=== PATIENT | female | born 1945 | race Caucasian/White ===

== ENCOUNTER 2017-03-20 21:45 | Observation (INO) ==
--- NOTE | 2017-03-20 22:31 | Emergency Department Note ---
Disposition Clinical Impression: Warfarin-induced coagulopathy, Elevated INR, Visual loss, Weakness, Elevated erythrocyte sedimentation rate Vitreous hemorrhage Qualifiers: Laterality: right Qualified Code(s): H43.11 - Vitreous hemorrhage, right eye Chest pain Qualifiers: Chest pain type: unspecified Qualified Code(s): R07.9 - Chest pain, unspecified Disposition: Admitted As Inpatient Condition: Fair Referrals: Ravin Mei MD [Primary Care Provider] - Forms: ED Satisfaction Letter Time of Disposition: 00:36 General Adult HPI - General Chief complaint: ED Recheck/Abnormal Lab/Rx Stated complaint: abnormal labs, sent by dr mei Time Seen by Provider: 03/20/17 21:49 Source: patient Mode of arrival: ambulatory Limitations: no limitations Nursing Notes Reviewed: Yes Vital Signs Reviewed: Yes - History of Present Illness HPI Narrative: Patient presents to the ED with the original complaint of abnormal labs. Patient reportedly was sent here due to an elevated INR. She is on Coumadin for lupus anticoagulant. Her INR was 6.6 today and so she was told to come in. Incidentally, the patient complains of generalized weakness over the last few days, increasing weakness in her bilateral upper extremities. She does have known cervical disc disease and has had previous decompressions and fusions. She is unable have an MRI because of this. She reports a 24-hour history of right vision loss. Pain Scale: 6 - Related Data Allergies Allergy/AdvReac Type Severity Reaction Status Date / Time Iodinated Contrast- Oral and Allergy Anaphylaxis Verified 03/20/17 21:56 IV Dye Penicillins Allergy Rash Verified 03/20/17 21:56 Sulfa (Sulfonamide Allergy Swelling Verified 03/20/17 21:56 Antibiotics) of Lip/Tongue/Throat All systems ED: reviewed and negative except as stated. Constitutional: Reports: weakness. Denies: fever Eyes: Reports: vision change Cardiovascular: Reports: chest pain Respiratory: Denies: dyspnea Gastrointestinal: Denies: abdominal pain Musculoskeletal: Reports: as per HPI Neurological: Reports: weakness. Denies: headache Past Medical History - Past Medical History Attestation: Yes The following information was validated with the patient. Source: patient Medical history: Reports: COPD, CVA, DVT, diabetes, myocardial infarction, pulmonary embolus, thyroid disease Psychiatric history: Reports: no psych history - Social History Smoking Status: Current every day smoker Smokeless Tobacco Status: No Alcohol use: Reports: none Drug use: Reports: none Physical Exam - General Limitations: no limitations General appearance: alert, in no apparent distress - Head Head exam: atraumatic, normocephalic, normal inspection - Eye Eye exam: Present: other (Red reflex is absent in the right eye, pupils are reactive but sluggish, no apparent pupillary defect. At this point) - ENT ENT exam: normal exam, normal oropharynx, mucous membranes moist - Neck Neck exam: Absent: full ROM (decreased), tenderness - Chest Chest inspection: Present: normal inspection, symmetric chest wall rise - Respiratory Respiratory exam: Present: normal lung sounds bilaterally - Cardiovascular Cardiovascular exam: Present: regular rate, normal rhythm, normal heart sounds - Abdominal Exam Abdominal exam: Present: soft, Non-Tender. Absent: tenderness, distention, guarding, rebound, rigidity - Expanded Upper Extremity Exam Shoulder exam: Present: normal inspection, full ROM Arm exam: Present: normal inspection, full ROM Elbow exam: Present: normal inspection, full ROM Forearm/Wrist exam: Present: other (muscle wasting of LUE, chronic extending to hand, no acute weakness ) Vascular exam: Normal: capillary refill - Expanded Lower Extremity Exam Hip/Pelvis exam: Present: normal inspection, full ROM - Neurological Exam Neurological exam: Present: alert, oriented X3, CN II-XII intact - Expanded Neurological Exam Patient oriented to: Present: person, place, time Speech: Present: fluid speech Cranial nerves: EOM function (II, III, IV, ): Normal, facial sensation (V): Normal, facial palsy (VII): Normal, spinal accessory function (XI): Normal, tongue deviation (XII): Normal Motor strength - LUE: 4/5 Motor strength - RUE: 4/5 Motor strength - LLE: 4/5 Motor strength - RLE: 4/5 Upper motor neuron exam: collin neglect: Absent bilaterally Sensory exam upper extremity: light touch: Normal Sensory exam lower extremity: light touch: Normal Coma Scale Eye Opening: Spontaneous Coma Scale Motor Response: Obeys Commands Coma Scale Verbal Response: Oriented Coma Scale Total: 15 - Psychiatric Psychiatric exam: Present: normal affect, normal mood - Skin Skin exam: Present: warm, dry, intact, normal color Course Course Narrative: Patient presenting with generalized weakness, intermittent chest pain, increasing upper extremity weakness and 24 hour history of right-sided visual loss. We will check labs, repeat INR. CT head, chest x-ray and admitted. - Reevaluation(s) Reevaluation #1: attempted to admit patient to hospitalist service. Dr. Ro would like us to speak with Dr. Garcia from [facility] prior to accepting admission. Will page him now. Time: 00:12 Reevaluation #2: Bedside US showed suspected vitreous hemorrhage. unable to see retina due to haziness and debris We spoke with Dr. Garcia. He will see her tomorrow. No acute changes to management, hold anticoagulation, avoid high stress activities such as blowing nose or vomiting. No reversal at this time. Time: 00:29 Vital Signs Temperature 97.5 F L 03/20/17 21:56 Pulse Rate 60 03/20/17 21:56 Respiratory Rate 20 03/20/17 21:56 Blood Pressure 168/73 03/20/17 21:56 O2 Sat by Pulse Oximetry 97 03/20/17 21:56 Temperature 97.5 F L 03/20/17 21:56 Pulse Rate 60 03/20/17 21:56 Respiratory Rate 20 03/20/17 21:56 Blood Pressure 168/73 03/20/17 21:56 O2 Sat by Pulse Oximetry 97 03/20/17 21:56 Oxygen Delivery Oxygen Delivery Room Air Medical Decision Making - MDM Narrative Medical decision making narrative: Vitreous hemorrhage, chest discomfort, generalized weakness - Medical Records Medical records reviewed: Yes I reviewed the patient's medical records. - Lab Data Lab results reviewed: Yes I reviewed the patient's lab results. Result diagrams: 03/20/17 23:16 03/20/17 23:16 Lab Results 03/20/17 03/20/17 03/20/17 Range/Units 23:00 23:16 23:16 WBC 11.0 (4.3-11.1) K/mcL RBC 4.91 (3.82-4.97) M/mcL Hgb 15.0 (11.5-15.4) g/dL Hct 45.8 H (35.3-44.9) % MCV 93.3 (83.0-100.0) fL MCH 30.5 (28.0-33.3) pg MCHC 32.8 (31.6-35.5) g/dL RDW 13.9 (11.5-14.5) % Plt Count 250 (140-400) K/mcL MPV 10.1 (9.4-12.4) fL Immature Gran % 0.4 (0-4) % Seg Neutrophils % 70.4 % Lymphocytes % 17.6 % Monocytes % 8.1 % Eosinophils % 3.0 % Basophils % 0.5 % Neutrophils # 7.8 (1.6-8.9) K/mcL Lymphocytes # 1.9 (0.6-4.6) K/mcL Monocytes # 0.9 (0.0-1.3) K/mcL Eosinophils # 0.3 (0.0-0.6) K/mcL Basophils # 0.1 (0.0-0.2) K/mcL ESR (0-15) mm/hr PT 77.9 H* (9.4-12.1) Seconds INR 6.9 H* Sodium (136-145) mEq/L Potassium (3.5-5.1) mEq/L Chloride (98-107) mEq/L Carbon Dioxide (23-29) mEq/L BUN (8-23) mg/dL Creatinine (0.60-1.20) mg/dL Est GFR ( Amer) (> 60) Est GFR (Non-Af Amer) (> 60) BUN/Creatinine Ratio (6-26) Glucose (70-105) mg/dL Calculated Osmolality (280-300) Calcium (8.6-10.3) mg/dL Troponin I (< 0.04) ng/mL TSH (0.340-5.600) mcIU/mL Urine Color Yellow (Yellow) Urine Clarity Clear (Clear) Urine pH 7.0 (5.0-8.0) pH Units Ur Specific [place] 1.007 L (1.010-1.025) Urine Protein Trace (Neg-Trace) mg/dL Urine Glucose (UA) Normal (Normal) mg/dL Urine Ketones Negative (Negative) mg/dL Urine Blood Small H (Negative) Urine Nitrite Negative (Negative) Urine Bilirubin Negative (Negative) Urine Urobilinogen Normal (Normal) mg/dL Ur Leukocyte Esterase Negative (Negative) Urine Microscopic RBC 5-15 H (0-3) per hpf Urine Microscopic WBC 0-3 (0-3) per hpf Ur Squamous Epith Cells Many H (None-Few) per lpf Urine Bacteria None Seen (None-Few) per hpf Hyaline Casts None Seen (None-Few) per lpf Ur Culture Indicated? NO (NO) 03/20/17 03/20/17 03/20/17 Range/Units 23:16 23:16 23:16 WBC (4.3-11.1) K/mcL RBC (3.82-4.97) M/mcL Hgb (11.5-15.4) g/dL Hct (35.3-44.9) % MCV (83.0-100.0) fL MCH (28.0-33.3) pg MCHC (31.6-35.5) g/dL RDW (11.5-14.5) % Plt Count (140-400) K/mcL MPV (9.4-12.4) fL Immature Gran % (0-4) % Seg Neutrophils % % Lymphocytes % % Monocytes % % Eosinophils % % Basophils % % Neutrophils # (1.6-8.9) K/mcL Lymphocytes # (0.6-4.6) K/mcL Monocytes # (0.0-1.3) K/mcL Eosinophils # (0.0-0.6) K/mcL Basophils # (0.0-0.2) K/mcL ESR >= 130 H (0-15) mm/hr PT (9.4-12.1) Seconds INR Sodium 136 (136-145) mEq/L Potassium 3.8 (3.5-5.1) mEq/L Chloride 103 (98-107) mEq/L Carbon Dioxide 26 (23-29) mEq/L BUN 11 (8-23) mg/dL Creatinine 0.85 (0.60-1.20) mg/dL Est GFR ( Amer) > 60 (> 60) Est GFR (Non-Af Amer) > 60 (> 60) BUN/Creatinine Ratio 13 (6-26) Glucose 171 H (70-105) mg/dL Calculated Osmolality 285 (280-300) Calcium 9.8 (8.6-10.3) mg/dL Troponin I < 0.03 (< 0.04) ng/mL TSH 2.148 (0.340-5.600) mcIU/mL Urine Color (Yellow) Urine Clarity (Clear) Urine pH (5.0-8.0) pH Units Ur Specific [place] (1.010-1.025) Urine Protein (Neg-Trace) mg/dL Urine Glucose (UA) (Normal) mg/dL Urine Ketones (Negative) mg/dL Urine Blood (Negative) Urine Nitrite (Negative) Urine Bilirubin (Negative) Urine Urobilinogen (Normal) mg/dL Ur Leukocyte Esterase (Negative) Urine Microscopic RBC (0-3) per hpf Urine Microscopic WBC (0-3) per hpf Ur Squamous Epith Cells (None-Few) per lpf Urine Bacteria (None-Few) per hpf Hyaline Casts (None-Few) per lpf Ur Culture Indicated? (NO) - Radiology Data Radiology results reviewed: Yes I reviewed the patient's radiology results. CT and chest x-ray reviewed and otherwise unremarkable - EKG Data EKG #1 EKG attestation: Yes I reviewed and interpreted this EKG. EKG results narrative: EKG shows what appears to be an atrially paced rhythm. Patient has no acute signs of EKG abnormality at this time. Intervals appear to be normal after the paced presentation. No acute signs of ST segment elevation. Ventricular rate of 60. ME interval 182. QRS duration of 83. QTC of 445. No other acute pathology noted S.B.A.R. - S.B.A.R. Situation: Demographics, MOA Background: Presenting Complaint, Relevant PMH, Meds, & Allergies Assessment: Vital Signs, Course and respsone to treatment, Exam Concerns, Patient/Family Expectation, Pertinant Lab Results, Outstanding Labs Recommendation: Recommendation based on pending studies, treatments, or consults S.B.A.R. Report Given to: Dr. Ro SKyaraB.A.Mali Repor Time: 00:36 Attestation Statement - Attestation Attestation: I, Omar Leonard DO, examined this patient [id number] and my medical decision-making was reviewed with Dr. Robby Burr, Resident Physician. I agree with the documented findings, disposition and treatment plan as described except to the extent set forth below. Please see my progress notes for details. 71-year-old female presents to emergency room for abnormal lab. Her INR was 6.3 yesterday. Patient also had what she described as vision loss in the right eye. She has had this happened twice in the past secondary to a intraocular hemorrhage. Patient denies any other trauma this time. She has been falling more often but that secondary to stumbling over her feet. Patient presents here today secondary to abnormal lab and vision loss in the right eye. Physical exam is otherwise unremarkable. Vital signs reviewed and are stable except for hypertension. Patient has no acute neurologic symptoms. Her pupils are equal round reactive extraocular muscles are intact. Her oral mucosa is patent her trachea is midline of the lungs are clear she has no carotid bruits noted on exam. She has no stridor no trismus. Recent evaluation including CT imaging labs and carotid Dopplers are reviewed on the chart medical record system. She has no acute critical stenotic areas in the carotids and has a stable CT scan from us in 24 hours ago. Labs are otherwise unremarkable except for the INR that she disclosed to us. 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 Lungs are otherwise clear heart is regular abdomen is soft nontender nondistended with no guarding or rigidity. Left upper extremity has muscle wasting from the mid humerus down to the hand that is chronic. She does tingling in the right upper extremity but no acute neurologic deficits noted at this time. Symptoms could be secondary to nerve entrapment and chronic issue. Patient on presentation is concerning for neurologic issues secondary to history of stroke. She is also concerning for acute hemorrhage in the eyes secondary to the elevated INR. Patient will repeat laboratory workup completed including a CT of the head. Aside from his presenting issues at this point patient will be treated and evaluated for chest discomfort and pain as well as the eye related issues. Will most likely require admission for further evaluation of possible MRI and cardiac evaluation. Patient understands this and is comfortable with the projected plan. Her INR is 6.9 here today but does not require reversal at this point. We will continue to monitor here in the emergency room. She has no pain with palpation the eye movement of the eye and low clinical concern for increased intraocular pressure at this point. No other acute physical exam findings noted at this point. Patient did not have any critical care applied to her treatment course at this time. See detailed documentation of the physical exam , medical intervention, medical decision-making and disposition and the resident physician's note [phone] Hospitalist paged. Patient reviewed in detail. Consultation requested ophthalmology. Computer Processing Scheduler reviewed and presented these symptoms as well as ultrasound findings. No other concern from nursing at this time for what appears to be spontaneous vitreous hemorrhage. CT imaging of the head is otherwise unremarkable for intracranial bleed or obstructive pathology. There is what appears to be possible acute bleed inside the right eye at this time. No other acute findings noted. Patient has not had any acute change in symptoms or pain with movement or palpation of the eye at this time. Patient is otherwise stable with multiple medical complaints on presentation including chest pain and generalized weakness elevated INR and vision loss in the right eye. Will be admitted for definitive evaluation and management. Otherwise patient shown no acute signs of neurologic change or progression of her symptoms at this point. Admission process completed.
[2017-03-20 23:11] LABS: Bilirubin,Urine Negative (Negative); Blood,Urine Small (Negative); Clarity,Urine Clear (Clear); Color,Urine Yellow (Yellow); Glucose,Urine (UA) Normal (Normal); Ketones,Urine Negative (Negative); Leukocyte Esterase,Urine Negative (Negative); Nitrite,Urine Negative (Negative); Protein,Urine Trace mg/dL (Neg-Trace); Specific Gravity,Urine 1.007 (1.010-1.025); Urobilinogen,Urine Normal (Normal)
[2017-03-20 23:13] LABS: Bacteria,Urine None Seen per hpf (None-Few); Hyaline Casts,Urine None Seen per lpf (None-Few); Squamous Epithelial Cell,Urine Many per lpf (None-Few); WBC,Urine 0-3 per hpf (0-3)
[2017-03-20 23:27] LABS: Basophils # 0.1 K/mcL (0.0-0.2); Basophils % 0.5 %; Eosinophils # 0.3 K/mcL (0.0-0.6); Hematocrit 45.8 % (35.3-44.9); Immature Granulocytes % 0.4 % (0-4); Lymphocytes # 1.9 K/mcL (0.6-4.6); Lymphocytes % 17.6 %; Mean Corpuscular HGB Conc 32.8 g/dL (31.6-35.5); Mean Corpuscular Hemoglobin 30.5 pg (28.0-33.3); Mean Corpuscular Volume 93.3 fL (83.0-100.0); Mean Platelet Volume 10.1 fL (9.4-12.4); Monocytes # 0.9 K/mcL (0.0-1.3); Monocytes % 8.1 %; Neutrophils # 7.8 K/mcL (1.6-8.9); Platelet Count 250 K/mcL (140-400); Red Blood Count 4.91 M/mcL (3.82-4.97); Red Cell Distribution Width 13.9 % (11.5-14.5); Segmented Neutrophils % 70.4 %
[2017-03-20 23:43] LABS: INR 6.9; Prothrombin Time 77.9 Seconds (9.4-12.1)
[2017-03-20 23:46] LABS: BUN/Creatinine Ratio 13 (6-26); Blood Urea Nitrogen 11 mg/dL (8-23); Calcium 9.8 mg/dL (8.6-10.3); Carbon Dioxide 26 mEq/L (23-29); Chloride 103 mEq/L (98-107); Glucose 171 mg/dL (70-105); Osmolality,Calculated 285 (280-300); Potassium 3.8 mEq/L (3.5-5.1); Sodium 136 mEq/L (136-145); eGFR For African Americans > 60 (> 60); eGFR For Non-African Americans > 60 (> 60)
[2017-03-21 00:06] LABS: Thyroid Stimulating Hormone 2.148 mcIU/mL (0.340-5.600)
[2017-03-21] MEDS ORDERED: Albuterol 2.5 MG/3 ML NEBULIZER IH PRN (02:15)
[2017-03-21] MEDS ORDERED: *HR* Dextrose 50 % in Water (Syg) 50 ML SYRINGE IVP PRN (02:17)
[2017-03-21] MEDS ORDERED: Dextrose Gel 15 GM/37.5 ML TUBE PO PRN ×2 (02:17)
[2017-03-21] MEDS ORDERED: D5% in Water 1,000 ML IVC PRN (02:17)
--- NOTE | 2017-03-21 02:26 | Internal Med History&Physical ---
Date of Encounter: 03/21/17 Time of Encounter: 01:00 Assessment and Plan (1) Carotid stenosis Current visit: Yes Status: Acute Duplex carotid report reviewed, left side 40-59% stenosis. Pt has hx of CVA and she was sent to hospital by PCP to see vascular surgeon. - Will consult vascular surgery, non urgent, day shift to call. Qualifiers: Laterality: left Qualified Code(s): I65.22 - Occlusion and stenosis of left carotid artery (2) DVT prophylaxis Current visit: Yes Status: Acute Pt is on coumadin, INR supratherapeutic. (3) Vitreous hemorrhage Current visit: Yes Status: Acute Material Analyst was consult by ER, recommend hold coumadin, no reversal (see ER note). Qualifiers: Laterality: right Qualified Code(s): H43.11 - Vitreous hemorrhage, right eye (4) Elevated INR Current visit: Yes Status: Acute Hold coumadin, no active bleeding except vitreous now. Will closely f/u INR level. (5) Visual loss Current visit: Yes Status: Acute Due to Vitreous hemorrhage, crossing guard will see pt. (6) Weakness Current visit: Yes Status: Acute Most likely due to C-spine disease. Head CT done, negative. Cannot do MRI b/o metal pod and PPM (7) HTN (hypertension) Current visit: Yes Status: Acute Will cont home med and give hydralazine 10mg iv PRN Qualifiers: Hypertension type: essential hypertension Qualified Code(s): I10 - Essential (primary) hypertension (8) Diabetes Current visit: Yes Status: Acute Place pt on basal and sliding scale insulin. Qualifiers: Diabetes mellitus type: type 2 Diabetes mellitus complication status: without complication Diabetes mellitus group home insulin use: with group home use Qualified Code(s): E11.9 - Type 2 diabetes mellitus without complications ; Z79.4 - exterminator helper termite (current) use of insulin; Z79.4 - exterminator helper termite (current) use of insulin; Z79.4 - exterminator helper termite (current) use of insulin; Z79.4 - retirement ( current) use of insulin (9) COPD (chronic obstructive pulmonary disease) Current visit: Yes Status: Acute Stable, no signs of exacerbation, cont home med. Qualifiers: COPD type: emphysema Emphysema type: unspecified Qualified Code(s): J43.9 - Emphysema, unspecified (10) TK (obstructive sleep apnea) Current visit: Yes Status: Acute Cont CPAP during night. (11) Antiphospholipid syndrome Current visit: Yes Status: Acute Cont coumadin (hold now b/o supratherapeutic INR). Pt was on prednisone but was discontinued since about 3 months ago. Internal Medicine - H&P: HPI Chief complaint: Abnormal test results Admitted From: Home Plans for Post Hospital Care: Home History of present illness: Ms. Dalton is a 71 year old female with Hx of COPD, DM, HTN, TK on CPAP, Lupus , Antiphospholipid syndrome, Hx of DVT on coumadin, Hx of CVA, send to ER by PCP for high INR and carotid US shows stenosis. Pt also reported right eye vision change which she had before and was diagnosed as vitreous bleed. Pt has no other acute complaints. She has chronic headache, pt has weakness due to C- spine disease and s/p surgery. Past Med Surg Social Fam HX - Past Medical History Medical history: COPD, CVA, DVT, diabetes, myocardial infarction, pulmonary embolus, thyroid disease Psychiatric history: no psych history - Social History Smoking Status: Current every day smoker Packs per day: 1 Smokeless Tobacco Status: No Alcohol use: none Drug use: none - Family History Mother History Unknown: Yes Internal Medicine - H&P: Meds Albuterol Sulfate 2.5 mg IH TID PRN 03/21/17 [History] Carvedilol [Coreg] 25 mg PO DAILY 03/21/17 [History] Levocetirizine Dihydrochloride 5 mg PO DAILY 03/21/17 [History] Warfarin [Coumadin] 5 mg PO 1800 03/21/17 [History] 3 Allergy/AdvReac Type Severity Reaction Status Date / Time Iodinated Contrast- Oral and Allergy Anaphylaxis Verified 03/20/17 21:56 IV Dye Penicillins Allergy Rash Verified 03/20/17 21:56 Sulfa (Sulfonamide Allergy Swelling Verified 03/20/17 21:56 Antibiotics) of Lip/Tongue/Throat All Systems PM: A 10-system review of systems was performed and is negative for pertinent findings except as documented above in the HPI. - Constitutional Vitals: Temp Pulse Resp BP Pulse Ox 98.8 F 64 16 181/86 98 03/21/17 01:20 03/21/17 01:20 03/21/17 01:20 03/21/17 01:20 03/21/17 01:20 General appearance: Present: A&O X 3, no acute distress, answers questions appropriately - Head Head exam: Present: atraumatic, normocephalic - Eye Eye exam: Present: PERRL, conjuntiva pink, sclera anicteric Pupils: Present: PERRL Additional comments: Right eye vision change - Neck Neck exam general surgery: Present: supple, trachea midline. Absent: lymphadenopathy - Respiratory Respiratory exam: Present: CTAB. Absent: accessory muscle use, rales, rhonchi, wheezes - Cardiovascular Cardiovascular exam: Present: RRR, +S1, +S2. Absent: diastolic murmur, gallop, rubs, systolic murmur - GI/Abdominal GI/Abdominal exam: Present: normal bowel sounds, soft, no peritoneal signs. Absent: distended, tenderness - Extremities Exam Extremities exam: Present: warm, radial pulses palpable and symmetrical. Absent : calf tenderness, cyanotic, pedal edema - Neurological Exam Neurological exam: Present: CN II-XII intact, motor sensory deficit (Motor 4/5 Rt UE/LE, 4-/5 Lt UE/LE), oriented X3, no focal deficits. Absent: pronater drift, facial droop, speech deficit - Skin Skin exam: Present: dry, intact Internal Med - H&P Results - Labs CBC & Chem 7: 03/20/17 23:16 03/20/17 23:16
[2017-03-21] MEDS: Insulin DETEMIR 100 UNIT/ML X5UNITS SQ SCH ×2 (03:45→20:57)
[2017-03-21 04:11] LABS: Basophils # 0.1 K/mcL (0.0-0.2); Basophils % 0.6 %; Eosinophils # 0.3 K/mcL (0.0-0.6); Eosinophils % 2.9 %; Hematocrit 43.1 % (35.3-44.9); Hemoglobin 14.1 g/dL (11.5-15.4); Immature Granulocytes % 0.6 % (0-4); Lymphocytes # 2.6 K/mcL (0.6-4.6); Lymphocytes % 29.1 %; Mean Corpuscular HGB Conc 32.7 g/dL (31.6-35.5); Mean Corpuscular Hemoglobin 30.1 pg (28.0-33.3); Mean Corpuscular Volume 92.1 fL (83.0-100.0); Mean Platelet Volume 10.7 fL (9.4-12.4); Monocytes # 0.8 K/mcL (0.0-1.3); Monocytes % 8.8 %; Neutrophils # 5.1 K/mcL (1.6-8.9); Platelet Count 228 K/mcL (140-400); Red Blood Count 4.68 M/mcL (3.82-4.97); Red Cell Distribution Width 14.1 % (11.5-14.5)
[2017-03-21 04:22] LABS: INR 6.7
[2017-03-21 04:23] LABS: Prothrombin Time 74.6 Seconds (9.4-12.1)
[2017-03-21 05:03] LABS: BUN/Creatinine Ratio 14 (6-26); Blood Urea Nitrogen 12 mg/dL (8-23); Calcium 9.3 mg/dL (8.6-10.3); Carbon Dioxide 24 mEq/L (23-29); Chloride 104 mEq/L (98-107); Glucose 291 mg/dL (70-105); Osmolality,Calculated 292 (280-300); Potassium 3.9 mEq/L (3.5-5.1); Sodium 136 mEq/L (136-145); eGFR For African Americans > 60 (> 60); eGFR For Non-African Americans > 60 (> 60)
[2017-03-21] MEDS ORDERED: Nitroglycerin 1 INCH/GM PACKET TP ONE (05:43)
[2017-03-21] MEDS: Acetaminophen 325 MG TABLET PO PRN ×3 (05:59→21:19)
[2017-03-21] MEDS ORDERED: tiZANidine 4 MG TABLET PO PRN (07:00)
[2017-03-21] MEDS ORDERED: *HR* Phytonadione 5 MG TABLET PO ONE (08:06)
[2017-03-21] MEDS: Ranolazine 500 MG TAB.ER.12H PO SCH ×2 (08:57→20:57)
[2017-03-21] MEDS: Aspirin Enteric Coated 81 MG Tablet PO SCH (08:57)
[2017-03-21] MEDS: Furosemide 40 MG TABLET PO SCH (08:57)
[2017-03-21] MEDS: Isosorbide MONOnitrate (24 HR) 30 MG TAB.ER.24H PO SCH (08:58)
[2017-03-21] MEDS: Gabapentin 400 MG CAPSULE PO SCH ×3 (08:58→20:57)
[2017-03-21] MEDS: Losartan/HCTZ 50-12.5 TABLET PO SCH (08:58)
[2017-03-21] MEDS: Nicotine 21 MG PATCH.TD24 TD SCH (08:59)
[2017-03-21] MEDS: LEVOCETIRIZINE DIHYDROCHLORIDE 5 MG PO SCH (09:00)
[2017-03-21] MEDS: Insulin LISPRO 300 UNITS/3 ML VIAL SQ SCH ×3 (09:00→18:06)
[2017-03-21] MEDS: Budesonide/Formoterol 80/4.5 MDI IH SCH ×2 (11:36→20:07)
--- NOTE | 2017-03-21 12:10 | Internal Medicine Consult Note ---
Date of Encounter: 03/21/17 Time of Encounter: 12:08 Internal Medicine - CN: HPI - Data of Consult Requesting Physician: Roseline Sam MD - Consult Narrative History of present illness: Patient reports decreased vision in the right eye since 2 days ago. The visual loss is severe and patient reports that she sees only shades of light and shadows in her right eye. She states that her vision may have improved slightly since the initial loss of vision 2 days ago. She reports that she had a bleed in her right eye on 02/20/2017. She reports that she had some pain like pressure behind the eye before the loss of vision 2 days ago. Patient reports that she has had headaches on the top of her head near the back side in the past and she has a headache there at this time. She reports that she has blockage in her carotid arteries and she has lupus with extra clotting factors and she is on Coumadin for this. She reports that she iis a type II insulin dependent diabetic. She reports that she has coronary artery disease and she has a pacemaker. She reports that she has COPD and sleep apnea. Examination reveals detection of hand movement only at about 1 foot in the right eye and 20/25-2 with correction at near in the left eye. Intraocular pressures are 23 mm Hg OD and 10 mm Hg OS via applanation without the use of fluorescein dye (patient reports that she is allergic to this dye). Extraocular motility was normal. Confrontation visual layne: unable to perform in the right eye due to the profound visual loss. confrontation visual layne were normal in the left eye. Pupils - round, sluggish to light OD & OS. No relative afferent pupillary defects noted. Slit lamp examination: Eyelids normal OD & OS, conjunctiva normal OD & OS, cornea clear OD & OS, anterior chamber depth 2/ clear OD & OS, iris- slightly serrated pupillary margin OD, mild iris transillumination OD & OS, otherwise normal OD & OS. Lens: Posterior chamber IOL in good position OD & OS; open posterior capsule OD , trace posterior capsular opacification OS. Posterior segment: OD diffuse vitreous hemorrhage precludes view of the ocular fundus. OS: optic disc has moderate cupping with a cup to disc ratio of 0.6; macula - presumed argon laser photocoagulation scars, otherwise normal; vessels unremarkable; panretinal photocoagulation scars noted in the retinal periphery in all quadrants; vitreous is clear. Impression: 1. Vitreous hemorrhage right eye 2. Pseudophakia both eyes. 3. 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 Recommendation: Patient should avoid all unnecessary activities and rest with her head elevated using an extra pillow if necessary. She should follow up with her plastic outfitter, Dr. Baldwin after discharge. Please send a copy of this report to his office or give patient a copy of the report to give to him. Thank you. Hussein Garcia D.O. Past Med Surg Social Fam HX - Past Medical History Medical history: COPD, CVA, DVT, diabetes, myocardial infarction, pulmonary embolus, thyroid disease Psychiatric history: no psych history - Social History Smoking Status: Current every day smoker Packs per day: 1 Smokeless Tobacco Status: No Alcohol use: none Drug use: none - Family History Mother History Unknown: Yes Internal Medicine - CN: Meds Albuterol Sulfate 2.5 mg IH TID PRN 03/21/17 [History] Albuterol Sulfate [Proair Hfa] 90 mcg IH Q4H PRN 03/21/17 [History] Albuterol Sulfate [Proair Respiclick] 90 mcg IH 03/21/17 [History] Albuterol Sulfate [Proair Respiclick] 90 mcg IH Q4H PRN 03/21/17 [History] Aspirin [Lo-Dose Aspirin EC] 81 mg PO DAILY 03/21/17 [History] Atorvastatin Calcium [Lipitor] 20 mg PO DAILY 03/21/17 [History] Carvedilol [Coreg] 25 mg PO DAILY 03/21/17 [History] Furosemide [Lasix] 40 mg PO DAILY 03/21/17 [History] Gabapentin [Neurontin] 800 mg PO QID 03/21/17 [History] Insulin ASPART [NovoLOG] 18 unit SQ TIDWM 03/21/17 [History] Insulin Glargine,Hum.rec.anlog [Lantus Solostar] 23 units SQ HS 03/21/17 [ History] Isosorbide MONOnitrate [Isosorbide Mononitrate ER] 30 mg PO DAILY 03/21/17 [ History] Levocetirizine Dihydrochloride 5 mg PO DAILY 03/21/17 [History] Levothyroxine [Synthroid] 175 mcg PO 0630 03/21/17 [History] Losartan/Hydrochlorothiazide [Losartan-Hctz 100-25 mg Tab] 1 tab PO DAILY [History] Montelukast Sodium [Singulair] 10 mg PO HS 03/21/17 [History] Omeprazole [PriLOSEC] 20 mg PO DAILY 03/21/17 [History] Polyethylene Glycol 3350 [MiraLAX] 17 gm PO DAILY 03/21/17 [History] Potassium Chloride [K-Tab ER] 20 meq PO DAILY 03/21/17 [History] Ranolazine [Ranexa] 1,000 mg PO BID 03/21/17 [History] Sucralfate [Carafate] 1 gm PO 0730,1630 03/21/17 [History] Symbicort 80/4.5 2 puff IH BID 03/21/17 [History] Tizanidine HCl [Zanaflex] 1 cap PO BID PRN 03/21/17 [History] Warfarin [Coumadin] 5 mg PO 1800 03/21/17 [History] 3 Allergy/AdvReac Type Severity Reaction Status Date / Time Iodinated Contrast- Oral and Allergy Anaphylaxis Verified 03/20/17 21:56 IV Dye Penicillins Allergy Rash Verified 03/20/17 21:56 Sulfa (Sulfonamide Allergy Swelling Verified 03/20/17 21:56 Antibiotics) of Lip/Tongue/Throat Internal Medicine - CN: Exam - Constitutional Vitals: Temp Pulse Resp BP Pulse Ox 98.1 F 73 16 156/71 97 03/21/17 11:23 03/21/17 11:23 03/21/17 11:23 03/21/17 11:23 03/21/17 11:23 Internal Medicine - CN: Reslt - Labs CBC & Chem 7: 03/21/17 02:56 03/21/17 02:56 Labs: Short CBC 03/21/17 Range/Units 02:56 WBC 8.8 (4.3-11.1) K/mcL Hgb 14.1 (11.5-15.4) g/dL Hct 43.1 (35.3-44.9) % Plt Count 228 (140-400) K/mcL Neutrophils # 5.1 (1.6-8.9) K/mcL BMP 03/21/17 02:56 Sodium 136 Potassium 3.9 Chloride 104 Carbon Dioxide 24 BUN 12 Creatinine 0.85 Glucose 291 H Calcium 9.3 - ABG Interpretation ABG results: PT/INR, D-dimer PT 74.6 Seconds (9.4-12.1) H* 03/21/17 02:56 Consult Discharge Plan - Plan Referrals: Ravin Frank MD [Primary Care Provider] -
--- NOTE | 2017-03-21 12:37 | Event Note ---
Date of Encounter: 03/21/17 Time of Encounter: 12:25 Patient is a 71y/o female with PMH of DM, COPD, antiphospholipid syndrome on coumadin, PE, DVT who was sent to the ER by PCP for right eye vision loss, elevated INR, and carotid stenosis. Pt seen and examined at bedside. Resting in bed Pt has been evaluated by Ophthalmology this morning Pt to keep head elevated and continue supportive care Vascular surgery consulted for the carotid stenosis labs and vitals reviewed resume home medications added Hydralazine 10mg IV q6h prn SBP>160 Hold coumadin at this time will give one time dose of Vitamin K 5mg PO closely monitor INR.
--- NOTE | 2017-03-21 14:36 | Vascular/Endovasc Consult Note ---
Date of Encounter: 03/21/17 Time of Encounter: 14:33 Assessment and Plan (1) Warfarin-induced coagulopathy Current Visit: Yes Status: Acute Patient has an elevated INR which is being treated and reversed. (2) Vitreous hemorrhage Current Visit: Yes Status: Acute Patient has a three-week history of the right vitreous hemorrhage. The patient has been in contact with her monotyper. The patient is to follow up with the monotyper as an outpatient according to what the patient describes to me today. Qualifiers: Laterality: right Qualified Code(s): H43.11 - Vitreous hemorrhage, right eye (3) Carotid stenosis Current Visit: Yes Status: Acute Patient has mild to moderate stenosis on my review of the imaging suggesting a 40-59% left internal carotid artery stenosis. The vertebral arteries are patent with antegrade flow bilaterally. In light of the overall symptoms and issues present in this patient's clinical profile the carotid artery stenosis is not significant and does not warrant further investigation with angiography either through catheter based or CT angiography. I reassured the patient that the other issues are more important at this time. She does not need further follow- up with me through my clinic unless there are further developments or concerns. If a follow-up duplex scan is desired this can be deferred for 2 years before his repeated due to the relatively mild to moderate degree of stenosis present on the study performed last night. All questions were answered. I spoke with the patient's family as well as the patient herself. Qualifiers: Laterality: left Qualified Code(s): I65.22 - Occlusion and stenosis of left carotid artery - History of Present Illness Consult date: 03/21/17 Requesting physician: Roseline Sam Consult reason: Carotid artery stenosis Chief complaint: Right eye visual impairment with history of vitreous bleed as well as supra History of present illness: Ms. Dalton is a 71 year old female Who is seen today in regards to consultation regarding an abnormal carotid artery duplex scan. Patient has a rather complicated medical history with multiple ongoing medical concerns. Patient had a carotid artery duplex scan performed late yesterday. It demonstrated left carotid artery stenosis. The patient was referred to the hospital for admission for further evaluation due to her ongoing multiple issues. The patient states she has not had a previous CT scan or duplex scan of her carotid arteries so we have no previous studies to compare against the one performed last night. I personally reviewed the images and have interpreted this study. She has a 40-59% stenosis of the left distal internal carotid artery. Peak systolic velocity is 131 cm/s with an end- diastolic velocity 42 cm/s. The internal to common carotid artery ratio is 1.8. The right carotid artery demonstrates nonstenotic plaque. Complicating this issue is the patient's long-standing problem with lupus anticoagulant. Patient states she has been on anticoagulation therapy since she was in her 20s. At this time her INR is greater than 6 and she is being reversed with appropriate agents. The patient has no symptoms to suggest active left hemispheric thromboembolic events. She has a variety of ongoing chronic symptoms that include lightheadedness and weakness and a sinking feelings. She has not had any loss of consciousness but states in the past she has fallen. She has a chronic history of cervical spine disease. She has decreased strength of the left upper extremity and decreased hand packer insulation of the left hand. She has a positive EMG study. She had a cervical spine fusion procedure performed at [facility] in 2014. Recent issues have also included an episode of shingles as well as pneumonia. Patient's overall mobility is impaired and she uses a walker here in the hospital and uses a rolling her at home. Past Med Surg Social Fam HX - Past Medical History Medical history: COPD, CVA, DVT, diabetes, myocardial infarction, pulmonary embolus, thyroid disease Psychiatric history: no psych history - Past Surgical History Surgical History: cataract, orthopedic, other (Cervical spine fusion at [facility] 2014), thyroidectomy, pacemaker - Social History Smoking Status: Current every day smoker Packs per day: 1 Smokeless Tobacco Status: No Alcohol use: none Drug use: none - Family History Mother History Unknown: Yes Medications and Allergies Albuterol Sulfate 2.5 mg IH TID PRN 03/21/17 [History] Albuterol Sulfate [Proair Hfa] 90 mcg IH Q4H PRN 03/21/17 [History] Albuterol Sulfate [Proair Respiclick] 90 mcg IH 03/21/17 [History] Albuterol Sulfate [Proair Respiclick] 90 mcg IH Q4H PRN 03/21/17 [History] Aspirin [Lo-Dose Aspirin EC] 81 mg PO DAILY 03/21/17 [History] Atorvastatin Calcium [Lipitor] 20 mg PO DAILY 03/21/17 [History] Carvedilol [Coreg] 25 mg PO DAILY 03/21/17 [History] Furosemide [Lasix] 40 mg PO DAILY 03/21/17 [History] Gabapentin [Neurontin] 800 mg PO QID 03/21/17 [History] Insulin ASPART [NovoLOG] 18 unit SQ TIDWM 03/21/17 [History] Insulin Glargine,Hum.rec.anlog [Lantus Solostar] 23 units SQ HS 03/21/17 [ History] Isosorbide MONOnitrate [Isosorbide Mononitrate ER] 30 mg PO DAILY 03/21/17 [ History] Levocetirizine Dihydrochloride 5 mg PO DAILY 03/21/17 [History] Levothyroxine [Synthroid] 175 mcg PO 0630 03/21/17 [History] Losartan/Hydrochlorothiazide [Losartan-Hctz 100-25 mg Tab] 1 tab PO DAILY [History] Montelukast Sodium [Singulair] 10 mg PO HS 03/21/17 [History] Omeprazole [PriLOSEC] 20 mg PO DAILY 03/21/17 [History] Polyethylene Glycol 3350 [MiraLAX] 17 gm PO DAILY 03/21/17 [History] Potassium Chloride [K-Tab ER] 20 meq PO DAILY 03/21/17 [History] Ranolazine [Ranexa] 1,000 mg PO BID 03/21/17 [History] Sucralfate [Carafate] 1 gm PO 0730,1630 03/21/17 [History] Symbicort 80/4.5 2 puff IH BID 03/21/17 [History] Tizanidine HCl [Zanaflex] 1 cap PO BID PRN 03/21/17 [History] Warfarin [Coumadin] 5 mg PO 1800 03/21/17 [History] 3 Allergy/AdvReac Type Severity Reaction Status Date / Time Iodinated Contrast- Oral and Allergy Anaphylaxis Verified 03/20/17 21:56 IV Dye Penicillins Allergy Rash Verified 03/20/17 21:56 Sulfa (Sulfonamide Allergy Swelling Verified 03/20/17 21:56 Antibiotics) of Lip/Tongue/Throat All Systems Review: A 10-system review of systems was performed and is negative for pertinent findings except as documented above in the HPI. Exam Vital Signs, Last 4 Hours Temp Pulse Resp BP Pulse Ox 03/21/17 11:23 98.1 F 73 16 156/71 97 General: Present: Conversant, No Apparent Distress, Well developed, Well nourished HEENT: Present: Atraumatic, Normocephaly, Trachea midline, Pupils equal Neck: Present: Other (Patient has surgical scars representing the right-sided approach for her cervical spine fusion and a transverse incision reflecting her previous thyroid surgery.). Absent: JVD, Left Carotid bruit, Right Carotid bruit, Midline deformity, Tracheal deviation Cardiac: Present: Reg Rate and Rhythm, Normal S1 and S2, No Murmur. Absent: Irregular Rhythm Lungs: Present: Normal Breath Sounds Neuro: Present: Alert and responsive, Cranial nerves grossly intact, Other ( Patient has left upper extremity weakness involving the intrinsic as well as gross motor movements of left upper extremity including the forearm hand and fingers.) Abdomen: Present: Soft, Other (Obese) Vascular: Present: Pulse, normal (Patient has 2+ palpable brachial and radial pulses bilaterally.). Absent: Bruit, Clubbing, Cyanosis Skin: Present: No rashes noted on visualized skin Consult Discharge Plan - Plan Referrals: Ravin Frank MD [Primary Care Provider] -
[2017-03-21] MEDS ORDERED: Insulin LISPRO 300 UNITS/3 ML VIAL SQ SCH (21:00)
[2017-03-22] MEDS: Acetaminophen 325 MG TABLET PO PRN (05:15)
[2017-03-22 05:36] LABS: INR 2.7
[2017-03-22 05:41] LABS: Basophils # 0.1 K/mcL (0.0-0.2); Basophils % 0.4 %; Eosinophils # 0.2 K/mcL (0.0-0.6); Eosinophils % 1.5 %; Hematocrit 47.3 % (35.3-44.9); Hemoglobin 15.2 g/dL (11.5-15.4); Immature Granulocytes % 0.4 % (0-4); Lymphocytes # 2.3 K/mcL (0.6-4.6); Lymphocytes % 17.8 %; Mean Corpuscular HGB Conc 32.1 g/dL (31.6-35.5); Mean Corpuscular Hemoglobin 30.1 pg (28.0-33.3); Mean Corpuscular Volume 93.7 fL (83.0-100.0); Mean Platelet Volume 10.6 fL (9.4-12.4); Monocytes # 1.2 K/mcL (0.0-1.3); Monocytes % 9.6 %; Platelet Count 256 K/mcL (140-400); Red Blood Count 5.05 M/mcL (3.82-4.97); Red Cell Distribution Width 14.3 % (11.5-14.5); Segmented Neutrophils % 70.3 %
[2017-03-22 05:52] LABS: BUN/Creatinine Ratio 20 (6-26); Blood Urea Nitrogen 14 mg/dL (8-23); Calcium 9.6 mg/dL (8.6-10.3); Carbon Dioxide 19 mEq/L (23-29); Chloride 106 mEq/L (98-107); Glucose 177 mg/dL (70-105); Magnesium 1.5 mg/dL (1.6-2.6); Osmolality,Calculated 283 (280-300); Phosphorous 2.6 mg/dL (2.7-4.5); Potassium 3.9 mEq/L (3.5-5.1); Sodium 134 mEq/L (136-145); eGFR For African Americans > 60 (> 60); eGFR For Non-African Americans > 60 (> 60)
[2017-03-22] MEDS: Budesonide/Formoterol 80/4.5 MDI IH SCH (08:08)
[2017-03-22] MEDS: Insulin LISPRO 300 UNITS/3 ML VIAL SQ SCH ×2 (08:29→12:27)
[2017-03-22] MEDS: Nicotine 21 MG PATCH.TD24 TD SCH (08:30)
[2017-03-22] MEDS: Gabapentin 400 MG CAPSULE PO SCH (08:32)
[2017-03-22] MEDS: Furosemide 40 MG TABLET PO SCH (08:32)
[2017-03-22] MEDS: Ranolazine 500 MG TAB.ER.12H PO SCH (08:32)
[2017-03-22] MEDS: Aspirin Enteric Coated 81 MG Tablet PO SCH (08:33)
[2017-03-22] MEDS: Isosorbide MONOnitrate (24 HR) 30 MG TAB.ER.24H PO SCH (08:33)
[2017-03-22] MEDS: Losartan/HCTZ 50-12.5 TABLET PO SCH (08:33)
[2017-03-22] MEDS: LEVOCETIRIZINE DIHYDROCHLORIDE 5 MG PO SCH (08:34)
[2017-03-22] MEDS ORDERED: Magnesium Sulfate 1 GM in D5% in Water 100 ML IVPB ONE (08:58)
[2017-03-22] MEDS ORDERED: amLODIPine 5 MG TABLET PO SCH (09:00)
[2017-03-22 11:44] VITALS: BP 122/63
--- NOTE | 2017-03-22 14:43 | Discharge Summary ---
Date of Encounter: 03/22/17 Time of Encounter: 13:18 - Discharge Diagnosis (1) Carotid stenosis Priority: Secondary Status: Acute Qualifiers: Laterality: left Qualified Code(s): I65.22 - Occlusion and stenosis of left carotid artery (2) Diabetes Priority: Secondary Status: Chronic Qualifiers: Diabetes mellitus type: type 2 Diabetes mellitus complication status: without complication Diabetes mellitus prison insulin use: with voice engineer use Qualified Code(s): E11.9 - Type 2 diabetes mellitus without complications ; Z79.4 - longterm (current) use of insulin; Z79.4 - roof foreman (current) use of insulin; Z79.4 - longterm (current) use of insulin; Z79.4 - roof foreman ( current) use of insulin (3) DVT prophylaxis Priority: Secondary Status: Acute (4) Elevated INR Priority: Primary Status: Acute (5) HTN (hypertension) Priority: Primary Status: Acute Qualifiers: Hypertension type: essential hypertension Qualified Code(s): I10 - Essential (primary) hypertension (6) Vitreous hemorrhage Priority: Primary Status: Acute Qualifiers: Laterality: right Qualified Code(s): H43.11 - Vitreous hemorrhage, right eye (7) Visual loss Priority: Primary Status: Acute - Discharge Medications Prescriptions: amLODIPine [Norvasc] 5 mg PO DAILY #30 tablet Home Medications: Albuterol Sulfate 2.5 mg IH TID PRN 03/21/17 [History] Albuterol Sulfate [Proair Hfa] 90 mcg IH Q4H PRN 03/21/17 [History] Albuterol Sulfate [Proair Respiclick] 90 mcg IH 03/21/17 [History] Albuterol Sulfate [Proair Respiclick] 90 mcg IH Q4H PRN 03/21/17 [History] Aspirin [Lo-Dose Aspirin EC] 81 mg PO DAILY 03/21/17 [History] Atorvastatin Calcium [Lipitor] 20 mg PO DAILY 03/21/17 [History] Carvedilol [Coreg] 25 mg PO DAILY 03/21/17 [History] Furosemide [Lasix] 40 mg PO DAILY 03/21/17 [History] Gabapentin [Neurontin] 800 mg PO QID 03/21/17 [History] Insulin ASPART [NovoLOG] 18 unit SQ TIDWM 03/21/17 [History] Insulin Glargine,Hum.rec.anlog [Lantus Solostar] 23 units SQ HS 03/21/17 [ History] Isosorbide MONOnitrate [Isosorbide Mononitrate ER] 30 mg PO DAILY 03/21/17 [ History] Levocetirizine Dihydrochloride 5 mg PO DAILY 03/21/17 [History] Levothyroxine [Synthroid] 175 mcg PO 0630 03/21/17 [History] Losartan/Hydrochlorothiazide [Losartan-Hctz 100-25 mg Tab] 1 tab PO DAILY [History] Montelukast Sodium [Singulair] 10 mg PO HS 03/21/17 [History] Omeprazole [PriLOSEC] 20 mg PO DAILY 03/21/17 [History] Polyethylene Glycol 3350 [MiraLAX] 17 gm PO DAILY 03/21/17 [History] Potassium Chloride [K-Tab ER] 20 meq PO DAILY 03/21/17 [History] Ranolazine [Ranexa] 1,000 mg PO BID 03/21/17 [History] Sucralfate [Carafate] 1 gm PO 0730,1630 03/21/17 [History] Symbicort 80/4.5 2 puff IH BID 03/21/17 [History] Tizanidine HCl [Zanaflex] 1 cap PO BID PRN 03/21/17 [History] Warfarin [Coumadin] 5 mg PO 1800 03/21/17 [History] amLODIPine [Norvasc] 5 mg PO DAILY #30 tablet 03/22/17 [Rx] Allergies/Adverse Reactions: 3 Allergy/AdvReac Type Severity Reaction Status Date / Time Iodinated Contrast- Oral and Allergy Anaphylaxis Verified 03/20/17 21:56 IV Dye Penicillins Allergy Rash Verified 03/20/17 21:56 Sulfa (Sulfonamide Allergy Swelling Verified 03/20/17 21:56 Antibiotics) of Lip/Tongue/Throat Date of admission: 03/21/17 00:51 Primary care physician: Ravin Frank MD Consults: 03/21/17 01:12 Consult to Physician [CONS] Routine Consulting Provider: Hussein Garcia Reason for Consult: Vision loss, possibly vitreous bleeding. Called by ER Call Completed: Yes 03/21/17 02:20 Consult to Vascular Surgery [CONS] Routine Consulting Provider: Vascular Surgery Crum Reason for Consult: Carotid stenosis Call Completed: No Discharging clinician: Roseline Sam Anticipated date of discharge: 03/22/17 - Patient Status Disposition: Home, Self-Care Condition: Good Functional capacity at discharge: independent ambulation Overall status at discharge: patient is back to baseline - Ambulatory Orders Ambulatory Orders: Prothrombin Time INR [COAG] Time Frame: 1 Week, Facility: [facility], Location: Lab - Discharge Instructions Follow Up With: Ravin Frank MD [Primary Care Provider] - Additional Instructions: Please follow up with your primary care physician within five days after your discharge from the hospital. Follow up with internet media planner within five days after your discharge from the hospital. Avoid all unnecessary activities and rest with her head elevated using an extra pillow if necessary Amlodipine 5mg once a day has been added to your home medications due to elevated blood pressure. closely monitor your blood pressure at home, hold your blood pressure medications for systolic blood pressure less than 100. Resume coumadin in am. Get weekly INR checked Resume all other home medications as prescribed by your primary care physician. - Diet and Activity Diet: diabetic diet, low fat, low cholesterol, low salt diet Hospital course: Ms. Dalton is a 71 year old female with PMH of COPD, DM, HTN, TK on CPAP who was sent to the ER by PCP for acute right eye vision loss, elevated INR, and carotid stenosis. Pt was evaluated by opthalmology and supportive care was recommended. Pt received 5mg PO Vitamin K and INR is within therapeutic range. As per optho pt can be continued to anticoagulation after discharge. Dr. Baltazar was consulted for the carotid stenosis and no acute intervention was recommended. Pt was noted to remain hypertensive despite receiving home medications due to which she was started on Amlodipine 5mg once a day. BP better controlled. Pt is medically stable for discharge with outpatient follow up with PCP, opthalmology. - Time Spent with Patient Total time spent providing and/or coordinating discharge services: Less than 30 minutes - Constitutional Vitals: Temp Pulse Resp BP Pulse Ox 97.9 F 77 16 122/63 97 03/22/17 07:13 03/22/17 07:13 03/22/17 08:08 03/22/17 11:00 03/22/17 08:08 General appearance: Present: A&O X 3, no acute distress, answers questions appropriately - Head Head exam: Present: atraumatic, normocephalic - Respiratory Respiratory exam: Present: CTAB. Absent: accessory muscle use, rales, rhonchi, wheezes - Cardiovascular Cardiovascular exam: Present: RRR, +S1, +S2. Absent: diastolic murmur, gallop, rubs, systolic murmur - GI/Abdominal GI/Abdominal exam: Present: normal bowel sounds, soft, no peritoneal signs. Absent: distended, tenderness - Extremities Exam Extremities exam: Present: warm, radial pulses palpable and symmetrical. Absent : calf tenderness, cyanotic, pedal edema - Neurological Exam Neurological exam: Present: alert, oriented X3
--- NOTE | 2017-03-23 10:11 | Electrocardiograph Report ---
[address] [address] Test Date: 2017-03-20 Pat Name: Marleny Dalton Department: 103 Room: 2NE21 Gender: F Pool Hall Inspector: TMR : 1945 Requested By: Robby Burr Order Number: [id number] Reading MD: Andre Riddle MD Measurements Intervals [place] Rate: 60 P: 118 OK: 182 QRS: 35 QRSD: 83 T: 109 QT: 445 QTc: 445 Interpretive Statements ELECTRONIC ATRIAL PACEMAKER Electronically Signed On 03-23-2017 10:10:36 EST by Andre Riddle MD
== END 2017-03-22 15:59 | disposition home or self-care (01) ==
LOC: 2NENU 21:45 → EMEROO 21:45 → 2NENU 03-21 00:59
PROVIDERS: ADMIT Internal Medicine; ATTEND Internal Medicine